=== PATIENT | male | born 1965 | race Caucasian/White ===

== ENCOUNTER 2016-12-10 02:00 | Emergency (ER) | payer MEDICAID, OTHER ==
[~2016-12-10] VITALS: Ht 154.9 cm; Wt 64.0 kg
[2016-12-10 02:32] VITALS: BP 124/90
[2016-12-10 04:18] LABS: CARBON DIOXIDE 25 mEq/L (21-32); CHLORIDE 102 mEq/L (98-107); ETHANOL BLOOD 170 mg/dL; TROPONIN I < 0.02 ng/mL (0.00-0.04)
== END 2016-12-10 03:40 | disposition left against medical advice (07) ==
LOC: ER 02:05
DX: F10.129 Alcohol abuse with intoxication, unspecified (principal); R73.9 Hyperglycemia, unspecified
CPT/HCPCS: 36415; 80053; 82962; 84484; 99284; G0482; Z7610